=== PATIENT | female | born 1970 | race African-American/Black ===

== ENCOUNTER 2019-10-06 17:02 | Emergency (ER) | payer MEDICAID ==
--- NOTE | 2019-10-06 17:32 | ER Document Report ---
ED Medical Screen (RME) - General Chief Complaint: Abdominal Cramping Stated Complaint: FACILITY REFERRED - REQUEST MEDICATION Time Seen by Provider: 10/06/19 17:27 - HPI Notes: 10/06/19 17:31 Patient is a 49-year-old female who is accompanied by her son visiting from [place] who presents for increased visual and auditory hallucinations in the setting of untreated schizophrenia since March. No SI or HI. Denies drug allergies. Son states that there are times she will not sleep for 2 to 3 days. Denies fever, chest pain, shortness of breath, abdominal pain, nausea/vomiting. I have treated and performed a rapid initial assessment of this patient. A comprehensive ED assessment and evaluation of the patient, analysis of test results and completion of medical decision making process will be conducted by additional ED providers. PHYSICAL EXAMINATION: GENERAL: Well-appearing, well-nourished and in no acute distress. A&Ox3. Answers questions appropriately. Psych: flat affect, poor eye contact. speech clear. Physical Exam - Vital signs Vitals: Temp Pulse Resp BP Pulse Ox 98.5 F 82 20 184/96 H 97 10/06/19 17:23 10/06/19 17:23 10/06/19 17:23 10/06/19 17:23 10/06/19 17:23 Course - Vital Signs Vital signs: Temp Pulse Resp BP Pulse Ox 98.5 F 82 20 184/96 H 97 10/06/19 17:23 10/06/19 17:23 10/06/19 17:23 10/06/19 17:23 10/06/19 17:23
[2019-10-06 18:20] LABS: ABSOLUTE BASOPHILS # (AUTO) 0.1 10^3/uL (0.0-0.2); ABSOLUTE EOSINOPHILS # (AUTO) 0.1 10^3/uL (0.0-0.6); ABSOLUTE MONOCYTES (AUTO) 0.9 10^3/uL (0.1-1.4); ABSOLUTE NEUT (AUTO) 4.5 10^3/uL (1.7-8.2); BASOPHILS % (AUTO) 0.5 % (0-2); EOSINOPHILS % (AUTO) 0.8 % (0-6); HEMATOCRIT 40.2 % (36.0-47.0); HEMOGLOBIN 13.4 g/dL (12.0-15.5); MEAN CORPUSCULAR HEMOGLOBIN 27.3 pg (27.0-33.4); MEAN CORPUSCULAR HGB CONC 33.3 g/dL (32.0-36.0); MEAN CORPUSCULAR VOLUME 82 fl (80-97); PLATELET COUNT 218 10^3/uL (150-450); RED BLOOD COUNT 4.91 10^6/uL (3.72-5.28); RED CELL DISTRIBUTION WIDTH 14.2 % (11.5-14.0); SEGMENTED NEUTROPHILS % (AUTO) 47.7 % (42-78); TOTAL CELLS COUNTED % (AUTO) 100 %; WHITE BLOOD COUNT 9.4 10^3/uL (4.0-10.5)
[2019-10-06 18:39] LABS: ALBUMIN 4.3 g/dL (3.5-5.0); ALKALINE PHOSPHATASE 96 U/L (38-126); ANION GAP 8 (5-19); APPEARANCE,URINE CLEAR; ASPARTATE AMINO TRANSFERASE 23 U/L (14-36); BILIRUBIN,DIRECT 0.2 mg/dL (0.0-0.4); BILIRUBIN,TOTAL 0.5 mg/dL (0.2-1.3); BILIRUBIN,URINE NEGATIVE (NEGATIVE); BLOOD UREA NITROGEN 12 mg/dL (7-20); CALCIUM 9.8 mg/dL (8.4-10.2); CARBON DIOXIDE 30 mmol/L (22-30); CHLORIDE 103 mmol/L (98-107); COLOR,URINE YELLOW; GLUCOSE 80 mg/dL (75-110); GLUCOSE, URINE NEGATIVE (NEGATIVE); KETONES,URINE NEGATIVE (NEGATIVE); LEUKOCYTE ESTERASE,URINE NEGATIVE (NEGATIVE); NITRITE,URINE NEGATIVE (NEGATIVE); POTASSIUM 4.3 mmol/L (3.6-5.0); PROTEIN,URINE NEGATIVE (NEGATIVE); TOTAL PROTEIN 8.1 g/dL (6.3-8.2); URINE SPECIFIC GRAVITY 1.016; UROBILINOGEN,URINE NEGATIVE mg/dL (<2.0)
[2019-10-06 18:40] LABS: ACETAMINOPHEN < 10 ug/mL (10-30); ALCOHOL < 10 mg/dL (NONE DETECTED); SALICYLATE < 1.0 mg/dL (2.0-20.0)
[2019-10-06 18:48] LABS: URINE AMPHETAMINES SCREEN NEGATIVE; URINE BARBITURATES SCREEN NEGATIVE; URINE BENZODIAZEPINES SCREEN NEGATIVE; URINE COCAINE SCREEN NEGATIVE; URINE MARIJUANA (THC) SCREEN NEGATIVE; URINE METHADONE SCREEN NEGATIVE; URINE PHENCYCLIDINE SCREEN NEGATIVE
--- NOTE | 2019-10-06 19:19 | EKG REPORT ---
SEVERITY:- ABNORMAL ECG - SINUS RHYTHM PROBABLE LEFT ATRIAL ABNORMALITY BORDERLINE INFERIOR Q WAVES BORDERLINE T ABNORMALITIES, ANTERIOR LEADS : Confirmed by: Jagjit Mills MD 06-Oct-2019 19:17:29
[2019-10-06] MEDS ORDERED: ACETAMINOPHEN 325 MG TABLET PO ONE (19:49)
--- NOTE | 2019-10-06 19:51 | ER Document Report ---
ED Psych Disorder / Suicide <JASON ONTIVEROS - Last Filed: 10/07/19 01:40> <ZEUS VALENZUELA - Last Filed: 10/07/19 15:48> <KIM TRIMBLE - Last Filed: 10/07/19 16:22> - General Chief Complaint: Psych Problem Stated Complaint: FACILITY REFERRED - REQUEST MEDICATION Time Seen by Provider: 10/06/19 17:27 Primary Care Provider: [facility] [Outside] - Follow up as needed Notes: Patient is a 49-year-old female who presents to the emergency department with auditory and visual hallucinations. Patient states, " I am hearing voices and they are trying to kill me." Patient also states, "I see people." Patient has a history of schizophrenia. She has not been on her medications since March. Patient was on Invega when she was living in [place]. Patient states that she just moved from [place]. According to her son who spoke with the triage provider, she is not sleeping well. Patient admits to not sleeping well. Patient states that she has a history of hypertension, but is not on any m edications. She also takes a multivitamin every day. (JASON ONTIVEROS) Past Medical History - General Information source: Patient - Social History Smoking Status: Never Smoker Chew tobacco use (# tins/day): No Frequency of alcohol use: None Drug Abuse: None Family History: Reviewed & Not Pertinent Patient has suicidal ideation: No Patient has homicidal ideation: No <JASON ONTIVEROS - Last Filed: 10/07/19 01:40> Review of Systems <JASON ONTIVEROS - Last Filed: 10/07/19 01:40> - Review of Systems Notes: REVIEW OF SYSTEMS: CONSTITUTIONAL : Denies recent illness. Denies recent unintentional weight loss. Denies fever, chills, or sweats. EENT: Denies eye, ear, throat, or mouth pain, discharge, or symptoms. Denies nasal or sinus congestion. CARDIOVASCULAR: Denies chest pain. RESPIRATORY: Denies shortness of breath, cough, congestion, difficulty breathing, or wheezing. GASTROINTESTINAL: Denies nausea, vomiting, and diarrhea. Denies abdominal pain. Denies constipation. GENITOURINARY: Denies difficulty urinating, burning, blood in urine, urgency or frequency. MUSCULOSKELETAL: Denies neck and back pain. Denies joint pain or swelling. SKIN: Denies rash, itchiness, or lesions HEMATOLOGIC : Denies easy bruising or bleeding. LYMPHATIC: Denies swollen, painful, enlarged glands. NEUROLOGICAL: Denies no numbness or tingling denies weakness. Denies headache. Denies altered mental status. Denies alteration in speech. PSYCHIATRIC: See HPI. All other systems reviewed and negative. (JASON ONTIVEROS) Physical Exam <JASON ONTIVEROS - Last Filed: 10/07/19 01:40> - Vital signs Vitals: Temp Pulse Resp BP Pulse Ox 98.5 F 82 20 184/96 H 97 10/06/19 17:23 10/06/19 17:23 10/06/19 17:23 10/06/19 17:23 10/06/19 17:23 - Notes Notes: PHYSICAL EXAMINATION: GENERAL: Appears well, healthy, well-nourished, no acute distress. HEAD: Normocephalic, atraumatic. EYES: PERRL, conjunctiva normal, all extraocular movements intact, sclera nonicteric ENT: Moist mucous membranes. NECK: Supple, no noticeable swelling, redness, rash. Normal range of motion. LUNGS: Equal breath sounds bilaterally and clear to auscultation. No wheezes rales or rhonchi. CARDIOVASCULAR: S1-S2, regular rate, regular rhythm. Radial pulses 2+, normal. ABDOMEN: Normoactive bowel sounds. Soft, tender mid lower abdomen, no guarding, no rebound tenderness, and no masses palpated. EXTREMITIES: Normal strength and range of motion, no pitting or edema. No cyanosis. NEUROLOGICAL: Moves all extremities upon command. Strength 5/5 in all extremities. PSYCH: Withdrawn, soft-spoken. SKIN: Warm, dry. No rash, lesions, ulcerations noted. Normal skin turgor. (JASON ONTIVEROS) Course - Laboratory Result Diagrams: 10/06/19 17:48 10/06/19 17:48 <JASON ONTIVEROS - Last Filed: 10/07/19 01:40> - Laboratory Result Diagrams: 10/06/19 17:48 10/06/19 17:48 <KIM TRIMBLE - Last Filed: 10/07/19 16:22> - Re-evaluation Re-evalutation: 10/06/19 19:[address] the ED [address]. Kirby patient's hematology is unremarkable. Her chemistries are also unremarkable. Urinalysis is normal. And her toxicology is negative. Patient does have a small amount of abdominal tenderness, but I have a very low suspicion for any life-threatening etiology at this time. She will receive Tylenol to help with her pain. I will reassess her pain after she receives her Tylenol. At this time, the patient is medically clear for mental health evaluation. (JASON ONTIVEROS) - Vital Signs Vital signs: Temp Pulse Resp BP Pulse Ox 98.2 F 80 25 H 182/110 H 99 10/07/19 15:00 10/07/19 15:00 10/07/19 15:00 10/07/19 15:00 10/07/19 15:00 - Laboratory Laboratory results interpreted by me: 10/06/19 10/06/19 10/06/19 17:48 17:48 17:48 RDW 14.2 H Urine Ascorbic Acid 40 H Salicylates < 1.0 L Acetaminophen < 10 L Discharge <JASON ONTIVEROS - Last Filed: 10/07/19 01:40> <ZEUS VALENZUELA - Last Filed: 10/07/19 15:48> <KIM TRIMBLE - Last Filed: 10/07/19 16:22> - Discharge Clinical Impression: Auditory hallucinations, Visual hallucinations Condition: Stable Disposition: HOME, SELF-CARE Additional Instructions: You have been evaluated by both medical and behavioral health teams and have been deemed appropriate for discharge. You have been started on Haldol 5mg twice daily and Cogentin 1mg daily and have been provided prescriptions; please take as directed. If you are interested in the Haldol detonate shot that lasts 3-4 weeks, please discuss it with your outpatient provider during your appointment on the . Hallucinations You seem to be having hallucinations. Hallucinations are seeing, hearing, or feeling things that don't exist. These symptoms commonly occur with drug a buse and schizophrenia. Drugs like PCP, LSD, MDMA, peyote, and "psychedelic mushrooms" can cause frightening hallucinations. Users of methamphetamine or crack cocaine often see and feel bugs crawling on their skin. Patients with schizophrenia may hear voices that no one else can hear. The delusions of schizophrenia often involve conspiracies or relationships that are not real. When symptoms are due to drug abuse, the mental state usually improves as the drug wears off. Someone you trust should be with you until you are better, to protect you and calm your fears. Tranquilizer medicine is helpful at controlling hallucinations, anxiety, and deluded thoughts. Get a proper diet and enough sleep. Most patients do very well when they get proper medical treatment and social support. You should return at once if your symptoms get worse, if you are having suicidal thoughts or thoughts about hurting others, or if you feel that you are in danger. AT ANY TIME, IF YOUR SYMPTOMS CHANGE SIGNIFICANTLY OR WORSEN OR YOU DEVELOP NEW SYMPTOMS, RETURN TO THE EMERGENCY DEPARTMENT IMMEDIATELY FOR RE-EVALUATION. Prescriptions: Benztropine Mesylate [Cogentin 1 mg Tablet] 1 tab PO DAILY #26 tab Haloperidol [Haldol 5 mg Tablet] 5 mg PO BID #52 tablet Referrals: [facility] [Outside] - Follow up as needed
[2019-10-07] MEDS ORDERED: HYDROXYZINE PAMOATE 25 MG CAPSULE PO ONE (02:53)
[2019-10-07] MEDS ORDERED: AMLODIPINE BESYLATE 5 MG TABLET PO ONE (14:43)
--- NOTE | 2019-10-07 15:48 | PSYCHOLOGICAL NOTE ---
Psych Note - Psych Note Date seen by psych provider: 10/07/19 Time seen by psych provider: 08:05 Psych Note: Reason for Consult: Auditory and visual hallucinations Patient reports she is here because she is out of her medicine. She states she take Invega for her mental health and blood pressure medications. She reports being off Invega since moving to the local area (she is from [place]) and she has started to experience a return of symptoms. She disclosed both auditory and visual hallucinations (last occurred 2 days ago) and difficulty sleeping. She confirms it was not sleeping that brought her to [facility] ED. Patient's son disclosed that he moved his mother here thinking her symptoms were from were she was living. She was doing really well until a few months ago. He reports she has been hearing and seeings the last few days and not sleeping. He disclosed he has already obtained an appointment for mental health but it is not until 11/02/2019. He states he is hope the Ed can help with medication until she can see a provider. He reports he has no concerns with her returning home with him or of the patient hurting herself or others. Patient is alert and orientated to person, place and circumstance. She is unable to provided detail information on plan but knows she is in the hospital and in [place]. Mood and affect are both flat. Patient denies suicidal and homicidal ideation. Delusions are absent. Patient reports experiencing both auditory and visual hallucinations 2 days ago. She is not currently demonstrating behaviours that she is responding to internal stimuli ie organized and linear thought processes. She is able to engage in logical conversation; her conversational speech is very soft and difficult to understand at times. She does have a noted accent. eye contact was well maintained. Attention and concnertration is fair. Insight, judgment and impulse control is currently good. Medication recommendations per [facility]'s contracted psychiatrist Dr. Ina TUCKER are as follows: Haldol 5mg twice daily Cogentin 1mg daily Impression/plan: Patient is cleared from acute psychiatric services. Dr. Reinoso was consulted on the care and management of this patient; attending physician is in agreement with recommendations and dispositions.
[2019-10-07] MEDS ORDERED: HALOPERIDOL 5 MG TABLET PO ONE (16:20)
[2019-10-07] MEDS ORDERED: BENZTROPINE MESYLATE 1 MG TABLET PO ONE (16:20)
--- NOTE | 2019-10-07 16:22 | ER Document Report ---
Doctor's Note Notes: 10/07/19 16:20 assessed patient. Patient without any complaints. Patient is to be discharged with prescriptions to the care of her son per psych recommendations. Patient given outpatient resources by psych.
[2019-10-07 16:31] VITALS: BP 171/108
== END 2019-10-07 17:05 | disposition home or self-care (01) ==
LOC: ER 17:02
DX: R44.0 Auditory hallucinations (principal); R44.1 Visual hallucinations
CPT/HCPCS: 93005; 99285; 36415; 80307 ×4; 85025; 80053; 81001; 93010; J3490 ×4

== ENCOUNTER 2019-11-29 06:29 | Emergency (ER) | payer MEDICAID ==
[2019-11-29 08:39] LABS: APPEARANCE,URINE SLIGHTLY-CLOUDY; BILIRUBIN,URINE NEGATIVE (NEGATIVE); COLOR,URINE YELLOW; GLUCOSE, URINE NEGATIVE (NEGATIVE); KETONES,URINE NEGATIVE (NEGATIVE); LEUKOCYTE ESTERASE,URINE NEGATIVE (NEGATIVE); NITRITE,URINE NEGATIVE (NEGATIVE); PROTEIN,URINE NEGATIVE (NEGATIVE); URINE SPECIFIC GRAVITY 1.015; UROBILINOGEN,URINE NEGATIVE mg/dL (<2.0)
[2019-11-29 09:03] LABS: ABSOLUTE BASOPHILS # (AUTO) 0.1 10^3/uL (0.0-0.2); ABSOLUTE LYMPHOCYTES (AUTO) 2.7 10^3/uL (0.5-4.7); ABSOLUTE MONOCYTES (AUTO) 0.6 10^3/uL (0.1-1.4); ABSOLUTE NEUT (AUTO) 4.9 10^3/uL (1.7-8.2); BASOPHILS % (AUTO) 0.8 % (0-2); EOSINOPHILS % (AUTO) 0.4 % (0-6); HEMATOCRIT 40.7 % (36.0-47.0); HEMOGLOBIN 13.9 g/dL (12.0-15.5); LYMPHOCYTES % (AUTO) 32.7 % (13-45); MEAN CORPUSCULAR HEMOGLOBIN 27.3 pg (27.0-33.4); MEAN CORPUSCULAR HGB CONC 34.1 g/dL (32.0-36.0); MEAN CORPUSCULAR VOLUME 80 fl (80-97); MONOCYTES % (AUTO) 7.1 % (3-13); PLATELET COUNT 210 10^3/uL (150-450); RED CELL DISTRIBUTION WIDTH 13.9 % (11.5-14.0); TOTAL CELLS COUNTED % (AUTO) 100 %; WHITE BLOOD COUNT 8.3 10^3/uL (4.0-10.5)
[2019-11-29 09:18] LABS: ALBUMIN 4.6 g/dL (3.5-5.0); ALKALINE PHOSPHATASE 86 U/L (38-126); ANION GAP 8 (5-19); ASPARTATE AMINO TRANSFERASE 26 U/L (14-36); BILIRUBIN,TOTAL 0.6 mg/dL (0.2-1.3); BLOOD UREA NITROGEN 10 mg/dL (7-20); CALCIUM 9.9 mg/dL (8.4-10.2); CARBON DIOXIDE 30 mmol/L (22-30); CHLORIDE 100 mmol/L (98-107); GLUCOSE 149 mg/dL (75-110); POTASSIUM 4.2 mmol/L (3.6-5.0); TOTAL PROTEIN 8.4 g/dL (6.3-8.2)
[2019-11-29 11:09] LABS: URINE AMPHETAMINES SCREEN NEGATIVE; URINE BARBITURATES SCREEN NEGATIVE; URINE BENZODIAZEPINES SCREEN NEGATIVE; URINE COCAINE SCREEN NEGATIVE; URINE MARIJUANA (THC) SCREEN NEGATIVE; URINE METHADONE SCREEN NEGATIVE; URINE PHENCYCLIDINE SCREEN NEGATIVE
[2019-11-29 11:10] LABS: ACETAMINOPHEN < 10 ug/mL (10-30); ALCOHOL < 10 mg/dL (NONE DETECTED); SALICYLATE < 1.0 mg/dL (2.0-20.0)
[2019-11-29] MEDS ORDERED: ACETAMINOPHEN 325 MG TABLET PO ONE ×2 (11:34→22:28)
[2019-11-29] MEDS ORDERED: HYDROCHLOROTHIAZIDE 12.5 MG TABLET PO ONE (11:38)
--- NOTE | 2019-11-29 11:41 | ER Document Report ---
ED Psych Disorder / Suicide - General Chief Complaint: Psych Problem Stated Complaint: CANT SLEEP,SEENING THINGS Time Seen by Provider: 11/29/19 09:18 Notes: Patient is a 49-year-old female with a history of psychosis presents the emergency department with concerns for high blood pressure and auditory hallucinations. Patient was seen here in the emergency department at the end of September with the same issue. Denies any suicidal or homicidal ideation. Patiently is currently on Invega and Cogentin. Patient states that she has a headache, which started 3 days ago. TRAVEL OUTSIDE OF THE [place] IN LAST 30 DAYS: No Past Medical History - Social History Smoking Status: Never Smoker Chew tobacco use (# tins/day): No Frequency of alcohol use: None Drug Abuse: None Family History: Reviewed & Not Pertinent Patient has suicidal ideation: No Patient has homicidal ideation: No - Past Medical History Cardiac Medical History: Reports: Hx Hypertension Psychiatric Medical History: Reports: Hx Depression, Hx Schizophrenia Review of Systems - Review of Systems Notes: REVIEW OF SYSTEMS: CONSTITUTIONAL : Denies recent illness. Denies recent unintentional weight loss. Denies fever, chills, or sweats. EENT: Denies eye, ear, throat, or mouth pain, discharge, or symptoms. Denies nasal or sinus congestion. CARDIOVASCULAR: Denies chest pain. RESPIRATORY: Denies shortness of breath, cough, congestion, difficulty breathing, or wheezing. GASTROINTESTINAL: Denies nausea, vomiting, and diarrhea. Denies abdominal pain. Denies constipation. GENITOURINARY: Denies difficulty urinating, burning, blood in urine, urgency or frequency. MUSCULOSKELETAL: Denies neck and back pain. Denies joint pain or swelling. SKIN: Denies rash, itchiness, or lesions HEMATOLOGIC : Denies easy bruising or bleeding. LYMPHATIC: Denies swollen, painful, enlarged glands. NEUROLOGICAL: Denies no numbness or tingling denies weakness. Denies altered mental status. Denies alteration in speech. See HPI. PSYCHIATRIC: See HPI. All other systems reviewed and negative. Physical Exam - Vital signs Vitals: Temp Pulse Resp BP Pulse Ox 98.4 F 115 H 18 187/112 H 97 11/29/19 06:56 11/29/19 06:56 11/29/19 06:56 11/29/19 06:56 11/29/19 06:56 - Notes Notes: PHYSICAL EXAMINATION: GENERAL: Appears well, healthy, well-nourished, no acute distress. HEAD: Normocephalic, atraumatic. EYES: PERRL, conjunctiva normal, all extraocular movements intact, sclera nonicteric ENT: Moist mucous membranes. NECK: Supple, no noticeable swelling, redness, rash. Normal range of motion. LUNGS: Equal breath sounds bilaterally and clear to auscultation. No wheezes rales or rhonchi. CARDIOVASCULAR: S1-S2, regular rate, regular rhythm. Radial pulses 2+, normal. ABDOMEN: Normoactive bowel sounds. Soft, nontender, no guarding, no rebound tenderness, and no masses palpated. EXTREMITIES: Normal strength and range of motion, no pitting or edema. No cyanosis. NEUROLOGICAL: Moves all extremities upon command. Strength 5/5 in all extremities. PSYCH: Withdrawn, not very talkative. SKIN: Warm, dry. No rash, lesions, ulcerations noted. Normal skin turgor. Course - Re-evaluation Re-evalutation: 11/29/19 11:43 Hematology is unremarkable. Chemistries are also unremarkable. Patient is medically cleared for mental health evaluation by Dr. Reinoso and the mental health staff. 11/29/19 18:56 Mental health's recommendation for medications is to start Haldol 5 mg p.o. twice daily, Cogentin 1 mg p.o. daily, and clonidine 0.1 mg p.o. nightly. At this time, mental health is working on the plan for the patient. Patient will stay overnight here in the emergency department and be reevaluated tomorrow. - Vital Signs Vital signs: Temp Pulse Resp BP Pulse Ox 98.4 F 108 H 16 131/83 H 100 11/29/19 11:58 11/29/19 11:58 11/29/19 11:58 11/29/19 11:58 11/29/19 11:58 - Laboratory Result Diagrams: 11/29/19 08:40 11/29/19 08:40 Laboratory results interpreted by me: 11/29/19 11/29/19 08:40 08:40 Glucose 149 H Total Protein 8.4 H Salicylates < 1.0 L Acetaminophen < 10 L Discharge - Discharge Clinical Impression: Auditory hallucinations Hypertension Qualifiers: Hypertension type: essential hypertension Qualified Code(s): I10 - Essential (primary) hypertension Condition: Stable Disposition: PSYCH HOSP/UNIT
[2019-11-29] MEDS ORDERED: NITROFURANTOIN MONOHYD/M-CRYST 100 MG CAPSULE PO ONE (11:42)
--- NOTE | 2019-11-29 12:00 | EKG REPORT ---
SEVERITY:- BORDERLINE ECG - SINUS TACHYCARDIA BORDERLINE INFERIOR Q WAVES : Confirmed by: Godwin Moctezuma 29-Nov-2019 11:59:16
[2019-11-29] MEDS ORDERED: BENZTROPINE MESYLATE 1 MG TABLET PO ONE (18:56)
[2019-11-29] MEDS: HALOPERIDOL 5 MG TABLET PO SCH (19:25)
[2019-11-29] MEDS: BENZTROPINE MESYLATE 1 MG TABLET PO SCH (19:25)
[2019-11-29] MEDS ORDERED: CLONIDINE HCL 0.1 MG TABLET PO SCH (22:00)
[2019-11-30] MEDS: HALOPERIDOL 5 MG TABLET PO SCH (09:21)
[2019-11-30] MEDS: BENZTROPINE MESYLATE 1 MG TABLET PO SCH (09:21)
--- NOTE | 2019-11-30 11:12 | ER Document Report ---
Doctor's Note Notes: 11/30/19 11:11 Chart reviewed patient rounded on, complains of generalized back pain that started yesterday. Denies pain with void. Denies trauma. Patient is voiding without problems. Patient is calm reports she is waiting for her son to pick her up. Reports she lives with her son no grandchildren. Denies suicidal or homicidal ideations PHYSICAL EXAMINATION: GENERAL: Well-appearing and in no acute distress HEAD: Atraumatic, normocephalic. EYES: Pupils equal round extraocular movements intact, sclera anicteric, conjunctiva are normal. ENT: nares patent, Moist mucous membranes. NECK: Normal range of motion, supple without lymphadenopathy LUNGS: CTAB and equal. No wheezes rales or rhonchi. HEART: Regular rate and rhythm without murmurs ABDOMEN: Soft, no tenderness. No guarding, no rebound BACK: Complains of generalized back pain good distal movement and sensation EXTREMITIES: Normal range of motion, NEUROLOGICAL: Cranial nerves grossly intact. Normal sensory/motor exams. PSYCH: Normal mood, normal affect. SKIN: Warm, Dry, normal turgor, 11/30/19 14:41 Patient was discharged home with her son.
[2019-11-30] MEDS ORDERED: IBUPROFEN 800 MG TABLET PO ONE (11:20)
[2019-11-30] MEDS ORDERED: HALOPERIDOL DECANOATE INJ 100 MG/1 ML VIAL IM ONE (12:20)
[2019-11-30 13:12] VITALS: BP 160/62
--- NOTE | 2019-11-30 17:56 | PSYCHOLOGICAL NOTE ---
Psych Note - Psych Note Date seen by psych provider: 11/30/19 Time seen by psych provider: 11:00 Psych Note: Check in conducted with patient. Patient states she is is "good." Patient reports no concerns with returning home with her son. Patient initially declined Haldol Decoanate shot, but after speaking with her son, she was agreeable. Clinician notes patient will answer questions, but is otherwise not engaged verbally. Met with patient's son who was agreeable to discharge patient into his care. Medication recommendations per [facility] contracted psychiatrist Dr. Ina MD are as follows: Continue Haldol 5MG, twice a day Continue Cogentin 1MG, daily Continue Clonidine 0.1MG, at bedtime ONE TIME Haldol Decoanate 100MG Impression/Plan: Patient is recommended for rescind of IVC and is cleared from acute psychiatric services. Medication recommendations have been provided. Patient has mental health diagnosis of anxiety, depression, and schizophrenia. Patient presented to ED with concerns with auditory hallucinations. Patient was recently prescribed Invega 3 mg; however patient's son reports increased hallucinations and insomnia (with last sleep 2 days ago). Patient remained in ED overnight for medication stabilization and observation. Patient is believed to be therapeutically stable on medications. Patient is believed to be at baseline. Patient's son is primary caregiver and has agreed to facilitate follow up with mental health provider. Dr. Reinoso was consulted on the care and management of this patient; attending physician is in agreement with recommendations and disposition.
== END 2019-11-30 13:12 | disposition home or self-care (01) ==
LOC: ER 06:29
DX: I10 Essential (primary) hypertension (principal); F20.9 Schizophrenia, unspecified; R51 Headache; Z79.899 Other long term (current) drug therapy
CPT/HCPCS: 99284; 36415; 87086; 80307 ×4; 85025; 87088; 80053; 81001; 93005; 93010; J3490 ×7; J1631